=== PATIENT | female | born 1970 | race Caucasian/White ===

== ENCOUNTER 2019-05-04 10:02 | Emergency (ER) | payer BC ==
[2019-05-04] MEDS ORDERED: Ondansetron 4 MG/2 ML SDV IVPUSH ONE (11:24)
[2019-05-04] MEDS ORDERED: Sodium Chloride 0.9% 1,000 ML IV ONE (11:24)
--- NOTE | 2019-05-04 12:19 | EDM.PDOC ---
ED HPI GENERAL MEDICAL PROBLEM - General Chief Complaint: Gastrointestinal Problem Stated Complaint: NAUSEA/DIARRHEA Time Seen by Provider: 05/04/19 11:30 Source of Information: Reports: Patient, RN Notes Reviewed History Limitations: Reports: No Limitations - History of Present Illness INITIAL COMMENTS - FREE TEXT/NARRATIVE: Patient is a 49-year-old female who presents to the ED for evaluation of nausea/ vomiting/diarrhea. 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 She states that she has had about 10-12 episodes of diarrhea over the weekend, she did take some Imodium this morning and she is not had any diarrhea since. She states she is able to keep a little bit of water down, but she states also that at times it does not stay down and it comes straight back up. She does note that she is going bathroom less frequently, she states she usually drinks quite a bit of water throughout the day, but since these issues she has not been able to keep much down. Patient does not think she ate any sort of questionable foods, she states that she cooked supper on night, everyone ate the same food she did and no one else is sick like this. She does not characterize any others like sick contacts as well. She denies any cough or other issues. 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: Endocrine/Metabolic History: Reports: Hypothyroidism - Past Surgical History Female Surgical History: Reports: Hysterectomy, Tubal Ligation Musculoskeletal Surgical History: Reports: Arthroscopic Knee Social & Family History - Family History Cardiac: Reports: CAD : Reports: Dialysis Oncologic: Reports: Esophageal, Pancreatic - Tobacco Use Smoking Status *Q: Never Smoker Second Hand Smoke Exposure: No - Caffeine Use Caffeine Use: Reports: Soda - Recreational Drug Use Recreational Drug Use: No ED ROS GENERAL - Review of Systems Review Of Systems: See Below Constitutional: Reports: Malaise (generalized), Decreased Appetite. Denies: Fever, Chills Respiratory: Denies: Shortness of Breath, Cough Cardiovascular: Denies: Chest Pain GI/Abdominal: Reports: Diarrhea, Nausea, Vomiting. Denies: Abdominal Pain Neurological: Reports: Dizziness (when standing). Denies: Headache, Syncope ED EXAM, GI/ABD - Physical Exam Exam: See Below Exam Limited By: No Limitations General Appearance: Alert, WD/WN, No Apparent Distress Eyes: Bilateral: Normal Appearance Ears: Normal External Exam Nose: Normal Inspection Throat/Mouth: Normal Inspection, Normal Lips, Normal Teeth, Normal Gums, Normal Oropharynx (mildly dry oral mucosa), Normal Voice, No Airway Compromise Head: Atraumatic, Normocephalic Neck: Normal Inspection Respiratory/Chest: No Respiratory Distress, Lungs Clear, Normal Breath Sounds, No Accessory Muscle Use, Chest Non-Tender Cardiovascular: Normal Peripheral Pulses, Regular Rate, Rhythm, No Murmur GI/Abdominal Exam: Normal Bowel Sounds, Soft, Non-Tender, No Distention, No Mass Extremities: Normal Inspection, Normal Capillary Refill Neurological: Alert, Oriented, Normal Cognition, No Motor/Sensory Deficits Psychiatric: Normal Affect, Normal Mood Skin Exam: Warm, Dry, Intact, Normal Color, No Rash Course - Vital Signs Last Recorded V/S: Last Vital Signs Temp 97.9 F 05/04/19 10:39 Pulse 69 05/04/19 10:39 Resp 16 05/04/19 10:39 BP 124/82 05/04/19 10:39 Pulse Ox 98 05/04/19 10:39 - Orders/Labs/Meds Orders: Active Orders 24 hr Category Date Time Status Orthostatic Vital Signs [RC] ASDIRECTED Care 05/04/19 11:45 Ordered UA W/MICROSCOPIC [URIN] Stat Lab 05/04/19 11:23 Ordered Labs: Laboratory Tests 05/04/19 05/04/19 Range/Units 11:30 11:30 WBC 6.36 (3.98-10.04) K/mm3 RBC 5.30 H (3.98-5.22) M/mm3 Hgb 15.3 (11.2-15.7) gm/dl Hct 47.2 H (34.1-44.9) % MCV 89.1 (79.4-94.8) fl MCH 28.9 (25.6-32.2) pg MCHC 32.4 (32.2-35.5) g/dl RDW Std Deviation 44.0 (36.4-46.3) fL Plt Count 316 (182-369) K/mm3 MPV 10.6 (9.4-12.3) fl Neut % (Auto) 67.8 (34.0-71.1) % Lymph % (Auto) 23.4 (19.3-51.7) % Carter % (Auto) 6.4 (4.7-12.5) % Eos % (Auto) 1.4 (0.7-5.8) Baso % (Auto) 0.8 (0.1-1.2) % Neut # (Auto) 4.31 (1.56-6.13) K/mm3 Lymph # (Auto) 1.49 (1.18-3.74) K/mm3 Carter # (Auto) 0.41 H (0.24-0.36) K/mm3 Eos # (Auto) 0.09 (0.04-0.36) K/mm3 Baso # (Auto) 0.05 (0.01-0.08) K/mm3 Sodium 138 (136-145) mEq/L Potassium 3.4 L (3.5-5.1) mEq/L Chloride 102 (98-107) mEq/L Carbon Dioxide 28 (21-32) mEq/L Anion Gap 11.4 (5-15) BUN 8 (7-18) mg/dL Creatinine 0.9 (0.55-1.02) mg/dL Est Cr Clr Drug Dosing 75.15 mL/min Estimated GFR (MDRD) > 60 (>60) mL/min BUN/Creatinine Ratio 8.9 L (14-18) Glucose 93 (74-106) mg/dL Calcium 8.9 (8.5-10.1) mg/dL Total Bilirubin 0.5 (0.2-1.0) mg/dL AST 23 (15-37) U/L ALT 33 (14-59) U/L Alkaline Phosphatase 69 (46-116) U/L Total Protein 8.5 H (6.4-8.2) g/dl Albumin 4.1 (3.4-5.0) g/dl Globulin 4.4 gm/dL Albumin/Globulin Ratio 0.9 L (1-2) Meds: Medications Discontinued Medications Generic Name Dose Route Start Last Admin Trade Name Freq PRN Reason Stop Dose Admin Sodium Chloride 1,000 mls @ 999 mls/hr 05/04/19 11:24 05/04/19 11:34 Normal Saline IV 05/04/19 12:24 999 mls/hr ONETIME ONE Administration Ondansetron HCl 4 mg 05/04/19 11:24 05/04/19 11:34 Zofran IVPUSH 05/04/19 11:25 4 mg ONETIME ONE Administration - Re-Assessments/Exams Free Text/Narrative Re-Assessment/Exam: 05/04/19 12:18 Patient presents to the ED for the evaluation of nausea vomiting and diarrhea. Standing orders were placed, the patient did receive an IV with some fluids, 4 mg of Zofran, CBC and CMP and a urinalysis before being evaluated by a provider. She states that after the start of the fluids and the Zofran, the nausea has gotten much better, she states that she is feeling a little less dry after the fluids. She does report symptomatic improvement. Suspect that this might be a viral gastroenteritis in nature, and well treat as such if labs support this. 05/04/19 12:42 Labs are back, demonstrate no other abnormalities that would need more emergent evaluation at today's visit. Patient will be discharged home with general recommendations and some Zofran and have her follow-up with her regular provider in a few days if she is not feeling much better. Departure - Departure Time of Disposition: 12:43 Disposition: Home, Self-Care 01 Condition: Fair Clinical Impression: Viral gastroenteritis - Discharge Information *PRESCRIPTION DRUG MONITORING PROGRAM REVIEWED*: No *COPY OF PRESCRIPTION DRUG MONITORING REPORT IN PATIENT DANK: No Prescriptions: Ondansetron [Zofran ODT] 4 mg PO Q8H PRN #12 tab.dis PRN Reason: Nausea Instructions: Viral Gastroenteritis, Adult, [id number] Referrals: PCP,Not In Area [Primary Care Provider] - Forms: ED Department Discharge Additional Instructions: You have been evaluated in the ED for nausea/vomiting/diarrhea. It is likely that this is caused from a viral gastroenteritis. You have received IV fluid in the ED to help with the dehydration from the vomiting and diarrhea. Over the next 24-48 hours please try to limit diet to clear liquids and advance as tolerate to a bland diet to alleviate symptoms of nausea/vomiting/diarrhea. Please use the Zofran every 8 hours as needed for nausea. If your symptoms are not much better in a few days time, recommend you follow- up with your primary care provider for further evaluation. You may also take Imodium as needed for further diarrhea prophylaxis, however please try to take as little of this as possible. Please return to the ED if your symptoms change or worsen. Sepsis Event Note - Evaluation Sepsis Screening Result: No Definite Risk - Focused Exam Vital Signs: Vital Signs Temp Pulse Resp BP Pulse Ox 05/04/19 10:39 97.9 F 69 16 124/82 98 Date Exam was Performed: 05/04/19 Time Exam was Performed: 12:42 - My Orders Last 24 Hours: My Active Orders 05/04/19 11:23 UA W/MICROSCOPIC [URIN] Stat 05/04/19 11:45 Orthostatic Vital Signs [RC] ASDIRECTED - Assessment/Plan Last 24 Hours: My Active Orders 05/04/19 11:23 UA W/MICROSCOPIC [URIN] Stat 05/04/19 11:45 Orthostatic Vital Signs [RC] ASDIRECTED
== END 2019-05-04 13:00 | disposition home or self-care (01) ==
LOC: JD.ED 10:02
DX: A08.4 Viral intestinal infection, unspecified (principal); E03.9 Hypothyroidism, unspecified; Z88.2 Allergy status to sulfonamides; Z88.6 Allergy status to analgesic agent; Z79.890 Hormone replacement therapy
CPT/HCPCS: 36415; 80053; 85025; 96361; 96374; 99284; J2405; J7030; 99283